=== PATIENT | male | born 1985 | race African-American/Black ===

== ENCOUNTER 2016-07-25 14:51 | Emergency (ER) | payer OTHER, BC ==
[~2016-07-25] VITALS: Ht 177.8 cm; Wt 99.8 kg
[2016-07-25 15:33] VITALS: BP 156/87
--- NOTE | 2016-07-25 15:48 | Emergency Room Report ---
History of Present Illness General Chief Complaint: Upper Extremity Injury Source: Patient Present Illness HPI 31 YO Male presents to the ED c/o left sided upper back and neck tightness x 2 days s/p sleeping wrong. pt. describes stiffness, and aching. denies trauma or fall. denies fevers ,chills, recent spinal procedures, or hx of previous injury. pt also reports recent strenuous activities as well. denies weakness in the affected side. Denies numbness tingling or loss of sensation or gross motor movements of the extremities, incontinence of bowel or bladder. Denies CP , Palpitations, LOC, AMS, dizziness, Changes in Vision, Sensation, paresthesias , or a sudden severe headache. Allergies: Coded Allergies: No Known Allergies (Unverified , 07/25/16) Patient History Past Medical History: see triage record Pertinent Family History: none Immunizations: UTD Reviewed Nursing Documentation: PMH: Agreed, PSxH: Agreed Nursing Documentation-PMH Past Medical History: No Stated History Review of Systems All Other Systems: negative except mentioned in HPI Physical Exam Vital Signs Date Time Temp Pulse Resp B/P Pulse Ox O2 Delivery O2 Flow Rate FiO2 07/25/16 15:00 98.1 69 18 166/97 100 Room Air Sp02 EP Interpretation: reviewed, normal General Appearance: no apparent distress, alert, GCS 15, non-toxic Head: normocephalic, atraumatic Eyes: bilateral eye PERRL, bilateral eye normal inspection ENT: hearing grossly normal, normal pharynx, no angioedema, normal voice Neck: full range of motion, supple/symm/no masses Respiratory: lungs clear, normal breath sounds, speaking full sentences Cardiovascular #1: regular rate, rhythm, no edema Musculoskeletal: back normal, gait/station normal, normal range of motion, tender - left paraspinal ttp in the thoracic and cervical paraspinal musculature, no bony ttp, also left rhomboid ttp. FROM. no midline pain. Neurologic: alert, oriented x3, responsive, motor strength/tone normal, sensory intact, speech normal Psychiatric: judgement/insight normal, memory normal, mood/affect normal Skin: normal color, no rash, warm/dry, well hydrated Medical Decision Making PA Attestation Dr. armstrong is my supervising Physician whom patient management has been discussed with. Diagnostic Impression: Primary Impression: Muscle strain ER Course Pt. presents to the ED c/o left sided upper back and neck tightness x 2 days s/ p sleeping wrong. pt. describes stiffness, and aching. denies trauma or fall. denies fevers ,chills, recent spinal procedures, or hx of previous injury. Ddx considered but are not limited to Fracture, dislocation, contusion, epidural abscess, Sprain/Strain/Spasm Vital signs: are WNL, pt. is afebrile H&PE are most consistent with muscle spasm, no bony ttp to warrant imaging. ORDERS: none required at this time. ED INTERVENTIONS: - Toradol 45mg IM -350mg Soma PO I do not suspect an emergent condition at this time. with current presentation pt. is stable for close outpatient follow up. DISCHARGE: At this time pt. is stable for d/c to home. Will provide printed patient care instructions, and any necessary prescriptions. Care plan and follow up instructions have been discussed with the patient prior to discharge. Last Vital Signs Date Time Temp Pulse Resp B/P Pulse Ox O2 Delivery O2 Flow Rate FiO2 07/25/16 15:33 98.1 70 18 156/87 100 Room Air Disposition: HOME, SELF-CARE Condition: Stable Scripts Ibuprofen* (MOTRIN*) 600 Mg Tablet 600 MG ORAL THREE TIMES A DAY, #30 TAB 0 Refills Prov: Uma Villarreal 07/25/16 Cyclobenzaprine Hcl* (FLEXERIL*) 10 Mg Tablet 10 MG ORAL THREE TIMES A DAY for 7 Days, #21 TAB Prov: Uma Villarreal 07/25/16 Departure Forms: Return to Work Return to Work Date: Jul 26, 2016 Work Restrictions: No Heavy Lifting, No Prolonged Standing Other Restrictions: light duty x 1 week. Return to Full Activity: Aug 01, 2016 Patient Instructions: Muscle Cramps and Spasms, [id number], Muscle Strain, [id number] Additional Instructions: Take medications as directed. -Rest and limit strenuous physical activity x 1 week. Follow up with PCP in 3-5 days, if symptoms continue, may require further evaluation or physical therapy. Return sooner to ED if new symptoms occur, or current symptoms become worse. Do not drink alcohol, drive, or operate heavy machinery while taking Muscle Relaxers as this may cause drowsiness. - Please note that this Emergency Department Report was dictated using Dragon brass molder helper technology software, occasionally this can lead to erroneous entry secondary to interpretation by the dictation equipment. Uma Villarreal. Jul 25, 2016 15:48
[2016-07-25] MEDS ORDERED: Ketorolac 60mg Inj IM ONE (16:00)
[2016-07-25] MEDS ORDERED: IBUPROFEN600 MG ORAL (16:20)
[2016-07-25] MEDS ORDERED: CYCLOBENZAPRINE10 MG ORAL (16:20)
[2016-07-25 16:30] VITALS: BP 156/87
== END 2016-07-25 16:34 | disposition home or self-care (01) ==
LOC: EMR 15:32
DX: M54.9 Dorsalgia, unspecified (principal); M54.2 Cervicalgia; T14.8 Other injury of unspecified body region; X58.XXXA Exposure to other specified factors, initial encounter; Y93.9 Activity, unspecified; Y92.9 Unspecified place or not applicable
CPT/HCPCS: 96372; 99283